=== PATIENT | female | born 1995 | race Caucasian/White ===

== ENCOUNTER 2024-03-08 19:00 | Inpatient (IN) | payer BC ==
[2024-03-08 23:03] VITALS: BMI 41.9
[2024-03-09] MEDS ORDERED: Promethazine HCl 25 MG/ML VIAL IM PRN (00:15)
[2024-03-09] MEDS ORDERED: Ondansetron PF 4 MG/2 ML Vial IVP PRN (00:15)
[2024-03-09] MEDS ORDERED: Acetaminophen 500 MG TAB PO PRN (00:15)
[2024-03-09] MEDS ORDERED: Diphenoxylate HCl/Atropine Tablet PO PRN (00:15)
[2024-03-09] MEDS ORDERED: hydrALAZINE 20 MG/ML VIAL SLOW IVP PRN (00:15)
[2024-03-09] MEDS ORDERED: Ibuprofen 800 MG TAB PO PRN (00:15)
[2024-03-09] MEDS ORDERED: Carboprost 250 MCG/ML AMP IM PRN (00:15)
[2024-03-09] MEDS ORDERED: HYDROcodone/Acetaminophen 5/325 mg Tablet PO PRN (00:15)
[2024-03-09] MEDS ORDERED: Methylergonovine 0.2 MG/ML VIAL IM PRN (00:15)
[2024-03-09] MEDS ORDERED: Zolpidem Tartrate 5 MG TAB PO PRN (00:15)
[2024-03-09] MEDS ORDERED: Misoprostol 200 MCG TAB PR PRN (00:15)
[2024-03-09] MEDS ORDERED: Oxytocin 30 units/NS 500 ML 500 ML IV SCH ×2 (00:15)
[2024-03-09] MEDS ORDERED: Lidocaine 1% (PF) 30 ML VIAL SC PRN (00:15)
[2024-03-09 00:30] LABS: Hematocrit 36.1 % (34.9-44.5); Hemoglobin 11.6 g/dL (12.0-15.5); Mean Corpuscular HGB CONC 32.1 g/dL (32.0-36.0); Mean Corpuscular Hemoglobin 30.4 pg (27.0-33.0); Mean Corpuscular Volume 94.5 fL (81.6-98.3); Mean Platelet Volume 11.3 fL (7.4-10.4); Platelet Count 313 10x3/uL (150-450); RBC Distribution Width 14.4 % (11.5-14.5); Red Blood Cell (RBC) Count 3.82 10x6/uL (3.90-5.03); White Blood Cell (WBC) Count 12.3 10x3/uL (3.5-10.5)
[2024-03-09 00:46] LABS: ALT (SGPT) 11 U/L (8-55); AST (SGOT) 13 U/L (5-34); Albumin 2.9 g/dL (3.5-5.0); Alkaline Phosphatase 103 U/L (40-110); Anion Gap 13 mmol/L (10-20); BUN (Urea Nitrogen) 10 mg/dL (7.0-18.7); Bilirubin, Total 0.2 mg/dL (0.2-1.2); Calc. Creatinine Clearance 225 mL/min (70-130); Calcium 9.4 mg/dL (7.8-10.44); Carbon Dioxide 20 mmol/L (22-29); Chloride 107 mmol/L (98-107); Estimated GFR 120; Globulin 3.1 g/dL (2.4-3.5); Glucose 97 mg/dL (70-105); Potassium 3.9 mmol/L (3.5-5.1); Sodium 136 mmol/L (136-145)
[2024-03-09 01:03] LABS: HBsAg Index 0.19 S/CO (0-0.99); Hep B Surf Ag - L&D Non-Reactive S/CO (NonReactive)
[2024-03-09 01:05] LABS: Syphilis Antibody Nonreactive (Nonreactive); Syphilis Antibody Index 0.05 S/CO (<1.00 Non-Reactive)
[2024-03-09] MEDS: Misoprostol 100 MCG TAB VAG SCH (02:41)
[2024-03-09] MEDS: Dinoprostone 10 MG Suppository VAG SCH (07:46)
[2024-03-09] MEDS: Lactated Ringer's 1,000 ML IV SCH (23:00)
[2024-03-10] MEDS: fentaNYL 50 mcg/mL 1 mL Vial SLOW IVP PRN (03:29)
[2024-03-10] MEDS: fentaNYL/Ropivacaine Epidural 100 ML ONE (04:30)
[2024-03-10] MEDS ORDERED: Naloxone HCl 0.4 mg/ml Vial IVP PRN ×2 (04:34)
[2024-03-10] MEDS ORDERED: Moisturizing Cream (Eucerin) 113 GM JAR TOP PRN (04:34)
[2024-03-10] MEDS ORDERED: Acetaminophen 325 MG TAB PO PRN (04:34)
[2024-03-10] MEDS ORDERED: diphenhydrAMINE 50 MG/ML VIAL IVP PRN (04:34)
[2024-03-10] MEDS ORDERED: Promethazine HCl 25 MG/ML VIAL IM PRN ×2 (04:34→17:14)
[2024-03-10] MEDS ORDERED: Ondansetron PF 4 MG/2 ML Vial IVP PRN ×2 (04:34→17:14)
[2024-03-10] MEDS ORDERED: Lactated Ringer's 500 ML IV PRN (04:34)
[2024-03-10] MEDS ORDERED: Communication Order-Pharmacy FS SCH (04:45)
[2024-03-10] MEDS ORDERED: fentaNYL 2 mcg/Ropivacaine 0.2% Epidural 100 ML CADD EPIDURAL SCH (04:45)
[2024-03-10] MEDS: ePHEDrine Sulfate 50 MG/10 ML VIAL SLOW IVP PRN (05:14)
[2024-03-10 15:08] LABS: Analyzer IN Cardio CS NICU; RapidComm Collect By OR NURSE; pH (Cord, venous) 7.301 (7.250-7.350)
[2024-03-10 15:09] LABS: Analyzer IN Cardio CS NICU; RapidComm Collect By NURSE
[2024-03-10] MEDS: HYDROcodone/Acetaminophen 5/325 mg Tablet PO PRN ×2 (15:51→19:45)
[2024-03-10] MEDS ORDERED: hydrALAZINE 20 MG/ML VIAL SLOW IVP PRN (17:14)
[2024-03-10] MEDS ORDERED: HYDROcodone/Acetaminophen 5/325 mg Tablet PO PRN (17:14)
[2024-03-10] MEDS ORDERED: Milk Of Magnesia 30 ML UDCUP PO PRN (17:14)
[2024-03-10] MEDS ORDERED: Bisacodyl 10 MG SUPP PR PRN (17:14)
[2024-03-10] MEDS ORDERED: diphenhydrAMINE 25 MG CAP PO PRN (17:14)
[2024-03-10] MEDS ORDERED: Preparation H Ointment 28 GM TUBE PR PRN (17:14)
[2024-03-10] MEDS ORDERED: Lanolin Ointment 7 GM TUBE TOP PRN (17:14)
[2024-03-10] MEDS: Benzocaine-Menthol 82.5 ML CAN TOP PRN (21:40)
[2024-03-10] MEDS: Ibuprofen 800 MG TAB PO SCH (21:41)
[2024-03-10] MEDS: Docusate 100 MG CAP PO SCH (21:41)
[2024-03-11] MEDS: Tranexamic Acid 1,000 MG/10 ML VIAL ONE (05:09)
[2024-03-11] MEDS: Ferrous Sulfate 325 MG TAB PO SCH (05:10)
[2024-03-12] MEDS: Ferrous Sulfate 325 MG TAB PO SCH (07:28)
[2024-03-12] MEDS: Prenatal Vitamin 1 TAB PO SCH (07:29)
[2024-03-12] MEDS: Boostrix 0.5 ML (Tdap) VIAL (>/=7 yrs of age) IM ONE (08:16)
[2024-03-12 13:59] VITALS: BP 112/63; TEMP 97.8
== END 2024-03-12 13:00 | disposition home or self-care (01) | DRG 768 ==
LOC: CSHLD 21:07 → UNDOADMIN 21:07 → CSHLD 03-09 00:16 → CSHPED 03-10 20:22
PROVIDERS: ADMIT Student in an Organized Health Care Education/Training Program; ATTEND Student in an Organized Health Care Education/Training Program
PROC: 10D07Z6 Extraction of Products of Conception, Vacuum, Via Natural or Artificial Opening (ICD-10-PCS; principal; 2024-03-10)
PROC: 0DQR0ZZ Repair Anal Sphincter, Open Approach (ICD-10-PCS; 2024-03-10)
PROC: 0U7C7ZZ Dilation of Cervix, Via Natural or Artificial Opening (ICD-10-PCS; 2024-03-10)
PROC: 10907ZC Drainage of Amniotic Fluid, Therapeutic from Products of Conception, Via Natural or Artificial Opening (ICD-10-PCS; 2024-03-10)
PROC: 10H07YZ Insertion of Other Device into Products of Conception, Via Natural or Artificial Opening (ICD-10-PCS; 2024-03-10)
DX: O69.81X0 Labor and delivery complicated by cord around neck, without compression, not applicable or unspecified (principal); Z37.0 Single live birth; O70.20 Third degree perineal laceration during delivery, unspecified; Z3A.39 39 weeks gestation of pregnancy; Q99.2 Fragile X chromosome; O99.892 Other specified diseases and conditions complicating childbirth; Z88.1 Allergy status to other antibiotic agents; O77.9 Labor and delivery complicated by fetal stress, unspecified
CPT/HCPCS: 36415; 51702; 80053; 82805; 85027; 86780; 86850; 86900; 86901; 87340; J3010; J7120